=== PATIENT | female | born 1995 | race African-American/Black ===

== ENCOUNTER 2019-03-13 10:11 | Emergency (ER) | payer OTHER ==
[~2019-03-13] VITALS: Ht 170.2 cm; Wt 70.8 kg
[2019-03-13] MEDS ORDERED: IV NORMAL SALINE 1000ML BAG 1,000 ML IV ONE (11:15)
[2019-03-13] MEDS ORDERED: ONDANSETRON PF 4 MG/2 ML VIAL. IV ONE (11:15)
[2019-03-13] MEDS ORDERED: diphenhydrAMINE 50 MG/ML VIAL IVP ONE (11:15)
--- NOTE | 2019-03-13 12:09 | PHYS DOC ---
Past Medical History Past Medical History: No Pertinent History Past Surgical History: No Surgical History Alcohol Use: None Drug Use: None Adult General Chief Complaint Chief Complaint: HEADACHE HPI HPI Patient is a 24 year old AA female who presents to emergency department with complaints of a headache on the right side of her head in the frontal region that began earlier today. Patient states she feels nauseated and at times is felt lightheaded with a headache. She denies any vision changes, ringing in her ears, ear pain, abdominal pain, chest pain, palpitations, shortness of breath, fever, nausea, vomiting, diarrhea, or abdominal pain. Patient states she is currently her last menstrual cycle was October 28, 2018 and her estimated due date is August 02, 2019. She denies any irregular vaginal discharge, vaginal bleeding, dysuria, hematuria, or back pain. Currently she rates her discomfort a 7 out of 10 on the pain scale she states that she took some Tylenol earlier but denies any benefit from the Tylenol. Patient states that her MANAGER CAREER is Dr. Daniel she was supposed to be seen by him last week but her appointment was canceled. All other ROS is neg unless otherwise noted in HPI. Review of Systems Review of Systems See Above Current Medications Current Medications Current Medications Medications (Trade) Dose Ordered Sig/Halle Start Time Stop Time Status Last Admin Dose Admin Diphenhydramine HCl (Benadryl) 25 mg 1X ONCE 03/13/19 11:15 03/13/19 11:16 DC 03/13/19 11:13 25 MG Ondansetron HCl (Zofran) 4 mg 1X ONCE 03/13/19 11:15 03/13/19 11:16 DC 03/13/19 11:12 4 MG Sodium Chloride 1,000 ml @ 1,000 mls/hr 1X ONCE 03/13/19 11:15 03/13/19 12:14 03/13/19 11:13 1,000 MLS/HR Allergies Allergies Allergies Coded Allergies Type Severity Reaction Last Updated Verified No Known Drug Allergies 03/13/19 No Physical Exam Physical Exam See Above Constitutional: Well developed, well nourished, no acute distress, non-toxic appearance. [] HENT: Normocephalic, atraumatic, bilateral external ears normal, oropharynx moist, no oral exudates, nose normal. [] Eyes: PERRLA, EOMI, conjunctiva normal, no discharge. [] Neck: Normal range of motion, no stridor. [] Cardiovascular:Heart rate regular rhythm Lungs & Thorax: Respirations even and unlabored, no retractions, no respiratory distress Skin: Warm, dry, no erythema, no rash. [] Extremities: No cyanosis, ROM intact, no edema. [] Neurologic: Alert and oriented X 3, no focal deficits noted. [] Psychologic: Affect normal, judgement normal, mood normal. [] Current Patient Data Vital Signs Vital Signs Date Time Temp Pulse Resp B/P (MAP) Pulse Ox O2 Delivery O2 Flow Rate FiO2 03/13/19 10:34 98.4 99 20 109/80 (90) 100 98.4 EKG EKG [] Radiology/Procedures Radiology/Procedures [] Course & Med Decision Making Course & Med Decision Making Pertinent Labs and Imaging studies reviewed. (See chart for details) Is a 24-year-old female who presented to the ER with complaints of a right-sided headache that began earlier today. She tried taking Tylenol at home with no relief of her symptoms. The patient was given a liter of normal saline, 25 mg of IV Benadryl, and 4 mg of Zofran. She reported relief of her symptoms after those medications. Patient reported that she was a patient of Dr. Daniel's office but reports that her appointment last week was canceled and not rescheduled. Advised patient that she needs to follow-up with Dr. Dugan next week. Go home and rest in a dark, quiet room, continue taking Tylenol as needed for pain. Return to the ER if symptoms worsen. [] Dragon Disclaimer Dragon Disclaimer This electronic medical record was generated, in whole or in part, using a voice recognition dictation system. Departure Departure Impression: Primary Impression: Migraine headache Disposition: HOME, SELF-CARE Condition: STABLE Referrals: DAV DUGAN Jr, MD Patient Instructions: Migraine Headache, [id number] Additional Instructions: Follow-up with Dr. Dugan next week. Go home and rest in a dark, quiet room, c ontinue taking Tylenol as needed for pain. Return to the ER if symptoms worsen. [] Problem Qualifiers Primary Impression: Migraine headache Migraine type: unspecified Status migrainosus presence: without status migrainosus Intractability: not intractable Qualified Codes: G43.909 - Migraine, unspecified, not intractable, without status migrainosus BENNY ARIAS MAINTENANCE ASSISTANT Mar 13, 2019 12:09
[2019-03-13 12:36] VITALS: BP 98/57
== END 2019-03-13 13:00 | disposition home or self-care (01) ==
LOC: ER 10:11
DX: O26.892 Other specified pregnancy related conditions, second trimester (principal); G43.909 Migraine, unspecified, not intractable, without status migrainosus; R42 Dizziness and giddiness; Z3A.00 Weeks of gestation of pregnancy not specified
CPT/HCPCS: 96361; 96374; 96375; 99285; J1200; J2405; J7030